=== PATIENT | female | born 2005 | race Two or more races ===

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

== ENCOUNTER 2025-01-30 10:06 | Outpatient (AMB) | payer OTHER, SELFPAY ==
--- NOTE | 2025-01-30 10:28 | A.OFFVIS_ITS ---
Intake Visit Reasons: 6m TS Accompanied by: Mother Allergies No Known Allergies Allergy (Verified 01/30/25 10:33) Medication List - Last Reconciled 01/30/25 by Aida Dc CNP bupropion HCl XL 300 mg PO DAILY ergocalciferol (vitamin D2) 1,250 mcg PO Q2W escitalopram oxalate 5 mg PO DAILY fluticasone propionate 50 mcg/actuation intranasal guanfacine mg PO hydroxyzine HCl 25 mg PO DAILY melatonin 5 mg PO BEDTIME risperidone 3 mg PO BEDTIME HPI Comments Details: She reported having more facial tics and felt like her face was pulling. She said that she had more voice tics where she repeated what she heard. Tics could be triggered by anger, stress, happiness, or any emotions. She was working with psychiatrist and dose of risperidone was increased few months ago. It may be helping some. She was also working with therapist. She was planning to apply for some part-time jobs. Her mother says her tics get bad when she is angry. She makes sounds, mocks, and sometimes hits. She has severe emotional problems, anxiety, depression, and says that she has Tourette's syndrome diagnosed by her kindergarten classroom teacher at around age 7. At her initial visit in 2022, she became very, very agitated, yelling, and screaming when asked a few questions about Tourette's syndrome, saying she was very embarrassed. [place] came in and explained to her and the family in [place] that we are trying to get information on her, but it was hard to calm her down. She had the impression that she was coming in for brain scan and did not want to talk about her condition. She was asked if she wanted to try some medication for Tourette's syndrome, which she then said acts up when she is nervous or upset, angry. There was not a single tic noted during the appointment. She apparently makes some sounds and sniffing and limb movements, none of which occurred. She has been on Guanfacine 3mg/day for several years without improvement in her tics. PENDING SALE TO [facility] Medical History (Updated 01/30/25 @ 10:33 by Aida Dc CNP) ADHD Anxiety and depression Tourette syndrome Review of Systems Const Denies chills, Denies daytime sleepiness, Reports difficulty sleeping, Reports fatigue, Denies fever(s), Denies frequent falls, Reports headache(s), Denies increased appetite, Denies poor appetite, Reports snoring, Denies weakness, Denies weight gain and Denies weight loss Eyes Denies loss of vision ENT Denies vertigo, Denies dizziness, Reports headache(s) and Denies neck pain Card Denies chest pain at rest, Denies chest pain with activity, Denies syncope, Denies leg edema, Denies palpitations, Denies dyspnea and Denies dyspnea on exertion Resp Denies cough, Denies dyspnea, Denies dyspnea on exertion and Reports snoring GI Denies abdominal pain, Denies constipation, Denies heartburn, Denies diarrhea and Denies nausea Denies urinary frequency, Denies urinary incontinence and Denies urinary urgency Musc Denies abnormal gait, Denies back pain, Denies myalgias, Denies arthralgias, Denies neck pain, Denies numbness and Denies tingling Neuro Denies abnormal gait, Denies vertigo, Denies dizziness, Denies syncope, Denies frequent falls, Reports headache(s), Denies lack of coordination, Denies loss of vision, Reports memory loss, Denies numbness, Denies Other visual disturbances, Denies restless legs, Denies seizure-like activity, Denies tingling, Denies paresthesias, Denies tremor(s), Denies weakness and Reports other (tics) Psych Reports anxiety, Reports depression, Denies auditory hallucinations, Reports memory loss, Reports mood swings and Denies visual hallucinations Endo Reports fatigue and Denies palpitations Physical Exam Const Other: General Appearance:? normal, in no acute distress. Heart:? S1, S2 normal, no murmurs. Lungs:? clear anteriorly and posteriorly. Musculoskeletal:? normal. Extremities:? no edema. Psych:? alert, oriented, cognitive function intact, cooperative with exam. Neuro Other: Abnormal Neurological Findings:?No tics or grunts noted today. ? Mental Status: alert and oriented X 3. Normal attention, orientation, memory, and affect. Cranial Nerves: Pupils are equal, round, and reactive to light. External ocular muscles are intact. Visual tate are full, no ptosis. Face is symmetrical, no facial weakness or droop. Facial sensations are normal. Tongue protrudes in midline. Palate elevates symmetrically. Shoulder shrugging is normal Motor Examination: Normal muscle tone, bulk and strength. No atrophy or fasciculations. No drift of the extended upper extremities. DTR 2+. Plantars are flexor. Sensory Exam: Normal light touch, temperature, pinprick, vibration, and joint- position sensations. Rhomberg sign is absent. Coordination: No ataxia. No titubation. Gait Exam: Within normal limits. Cerebellar Signs: [id number] is okay. Extrapyramidal System: No tremor, rigidity with normal facial expressions. No bradykinesia. No bradyphrenia. Normal arm swing and posture. No propulsion or retropulsion. Speech: Normal. Assessment & Plan Assessment & Plan (1) Tourette syndrome: Code(s): F95.2 - Tourette's disorder Category: Medical Plan: Her dose of risperidone was increased to 3mg at bedtime by psychiatrist. Plan Meds tried: risperidone Coding Level of Care Code Est Pt Level 4 (82478) Diagnoses Tourette syndrome F95.2
== END 2025-01-30 10:45 | disposition home or self-care (01) ==
LOC: HO.HSM 10:07
PROVIDERS: Visit Provider Registered Nurse
DX: F95.2 Tourette's disorder (principal)
CPT/HCPCS: 99214

== ENCOUNTER → 2025-01-30 10:06 | Outpatient (BNVA) | payer OTHER, SELFPAY | PROVIDERS: Visit Provider Registered Nurse | DX: F95.2 Tourette's disorder (principal); Z79.899 Other long term (current) drug therapy | CPT/HCPCS: 99212 ==